=== PATIENT | female | born 1990 | race Hispanic/Latino ===

== ENCOUNTER 2018-10-07 09:00 | Emergency (ER) | payer OTHER ==
[2018-10-07] MEDS ORDERED: KETOROLAC TROMETHAMINE 30MG/ML ONE (09:17)
[2018-10-07] MEDS ORDERED: DEXAMETHASONE SOD PHOSPHATE 10MG/ML 1ML VIAL ONE (09:17)
== END 2018-10-07 09:56 | disposition home or self-care (01) ==
LOC: EDH 09:00
DX: M62.830 Muscle spasm of back (principal); Z98.890 Other specified postprocedural states
CPT/HCPCS: 96372 ×2; 99284; J1100; J1885